=== PATIENT | female | born 1950 | race Caucasian/White ===

== ENCOUNTER 2021-06-23 21:24 | Inpatient (IN) | payer MEDICARE, BC ==
[~2021-06-23] VITALS: Ht 162.6 cm; Wt 87.4 kg
[2021-06-23] MEDS ORDERED: IPRATRPIUM/ALBUTEROL 0.5/2.5MG 3 ML NEBU. NEB ONE (21:45)
[2021-06-23] MEDS ORDERED: methylPREDNISolone SOD SUCC PF 125 MG/2 ML VIAL. IV ONE (21:45)
[2021-06-23 22:08] LABS: BASO # 0.1 x10^3/uL (0.0-0.2); BASO % 1 % (0-3); EOS % 0 % (0-3); HEMATOCRIT 33.5 % (36.0-47.0); HEMOGLOBIN 11.2 g/dL (12.0-15.5); LYMPH # 0.4 x10^3/uL (1.0-4.8); LYMPH % 3 % (24-48); MEAN CORPUSCULAR HEMOGLOBIN 30 pg (25-35); MEAN CORPUSCULAR HGB CONC 33 g/dL (31-37); MEAN CORPUSCULAR VOLUME 90 fL (79-100); MONO # 0.5 x10^3/uL (0.0-1.1); MONO % 3 % (0-9); NEUT # 13.1 x10^3uL (1.8-7.7); NEUT % 93 % (31-73); PLATELET COUNT 286 x10^3/uL (140-400); RED BLOOD COUNT 3.71 x10^6/uL (3.50-5.40); RED CELL DISTRIBUTION WIDTH 18.6 % (11.5-14.5)
--- NOTE | 2021-06-23 22:12 | RAD ---
Exam: Chest one view INDICATION: Short of air, COPD, CHF TECHNIQUE: Frontal view of the chest Comparisons: None FINDINGS: Pacer AICD with leads in the right heart and coronary sinus. Heart is enlarged. Pulmonary vessels are within normal limits. Hazy opacity in lungs bilaterally. No pleural effusion. IMPRESSION: Findings likely related to pulmonary edema. Atypical infectious process is also possible. Electronically signed by: Kierra Ravi MD (06/23/2021 10:10 PM) DON
--- NOTE | 2021-06-23 22:12 | EKG ---
[address] [address] Test Date: 2021-06-23 Test Time: 21:52:22 Pat Name: WALT ENCARNACION Department: Room: Gender: F Tire Installer: : 1950 Requested By: LISBETH BOBO Order Number: [id number] Reading MD: Malachi Barrera Measurements Intervals [place] Rate: 104 P: 124 CT: 70 QRS: -42 QRSD: 100 T: -67 QT: 352 QTc: 469 Interpretive Statements SINUS TACHYCARDIA NON SPECIFIC ST-T WAVE CHANGES Electronically Signed On 06-24-2021 15:38:45 CDT by Malachi Barrera
[2021-06-23 22:23] LABS: ALBUMIN/GLOBULIN RATIO 0.7 (1.0-1.7); CALCIUM 9.2 mg/dL (8.5-10.1); GFR 55.1; TOTAL BILIRUBIN 1.3 mg/dL (0.2-1.0); TOTAL PROTEIN 7.2 g/dL (6.4-8.2)
--- NOTE | 2021-06-23 22:27 | PHYS DOC ---
Past History Past Medical History: Arthritis, CAD, CHF, COPD Additional Past Medical Histor: pacemaker/difibrillator, rheumatoid arthritis Past Surgical History: Other Adult General Chief Complaint Chief Complaint: MULTIPLE COMPLAINTS [facility] HPI Patient is a 70 year old female who presents with shortness of breath and joint pain. Patient has history of COPD, rheumatoid arthritis, congestive heart failure and was at home today. See fell while getting up from the sofa due to joint pain and was not able to get up for couple of hours. 2-hour later she did call ambulance and arrival to ambulance, they found her to have room air saturation of 84%. She was placed on oxygen and transported to the emergency department. Patient states that she did not lose consciousness and she had no injury from the fall. She had gone to a child welfare counselor a week ago and was con firmed to have a rheumatoid arthritis but has not been started on medications. She is supposed to be starting on hydrochloric when but has not done so. She did patient have a significant history of congestive heart failure which as of late actually has been getting slightly better as her medication recently has been switched from Lasix to Bumex. She also has AICD placed approximately a month ago as well. Again, her main complaint today is significantly increased joint pain and shortness of breath with feeling fatigued overall. Denies any fever, cough, diarrhea, vomiting or dysuria. Review of Systems Review of Systems Constitutional: Denies fever or chills Eyes: Denies change in visual acuity, redness, or eye pain HENT: Denies nasal congestion or sore throat Respiratory: Denies cough but has some shortness of breath Cardiovascular: No additional information not addressed in HPI GI: Denies abdominal pain, nausea, vomiting, bloody stools or diarrhea : Denies dysuria or hematuria Musculoskeletal: She has joint pain chronically all over her joints. Integument: Denies rash or skin lesions Neurologic: Denies headache, focal weakness or sensory changes Endocrine: Denies polyuria or polydipsia All other systems were reviewed and found to be within normal limits, except as documented in this note. Current Medications Current Medications Current Medications Medications (Trade) Dose Ordered Sig/Kailash Start Time Stop Time Status Last Admin Dose Admin Albuterol/ Ipratropium (Duoneb) 3 ml 1X ONCE 06/23/21 21:45 06/23/21 21:49 DC 10/14/21 22:01 3 ML Methylprednisolone Sodium Succinate (SOLU-Medrol 125MG VIAL) 125 mg 1X ONCE 06/23/21 21:45 06/23/21 21:49 DC 06/23/21 22:01 125 MG Allergies Allergies Allergies Coded Allergies Type Severity Reaction Last Updated Verified bupropion Allergy Unknown 06/23/21 Yes Physical Exam Physical Exam Constitutional: Well developed, well nourished, no acute distress, non-toxic appearance. HENT: Normocephalic, atraumatic, bilateral external ears normal, oropharynx moist, no oral exudates, nose normal. Eyes: PERRLA, EOMI, conjunctiva normal, no discharge. Neck: Normal range of motion, no tenderness, supple, no stridor. Cardiovascular:Heart rate regular rhythm Lungs & Thorax: Bilateral wheezing with moderate air exchange and occasional crackle. Abdomen: Bowel sounds normal, soft, no tenderness, no masses, no pulsatile masses. Skin: Warm, dry, no erythema, no rash. Back: No tenderness, no CVA tenderness. Extremities: No tenderness, no cyanosis, no clubbing, generalized edema both lower extremities but patient states it is better than her usual baseline. No joint redness noted. Neurologic: Alert and oriented X 3, normal motor function, normal sensory function, no focal deficits noted. Psychologic: Affect normal, judgement normal, mood normal. Current Patient Data Vital Signs Vital Signs Date Time Temp Pulse Resp B/P (MAP) Pulse Ox O2 Delivery O2 Flow Rate FiO2 06/23/21 21:55 91 Room Air 06/23/21 21:26 2.0 06/23/21 21:25 98.1 114 96/57 (70) 06/23/21 21:25 20 Lab Results Laboratory Tests Test 06/23/21 21:52 White Blood Count 14.0 x10^3/uL (4.0-11.0) H Red Blood Count 3.71 x10^6/uL (3.50-5.40) Hemoglobin 11.2 g/dL (12.0-15.5) L Hematocrit 33.5 % (36.0-47.0) L Mean Corpuscular Volume 90 fL (79-100) Mean Corpuscular Hemoglobin 30 pg (25-35) Mean Corpuscular Hemoglobin Concent 33 g/dL (31-37) Red Cell Distribution Width 18.6 % (11.5-14.5) H Platelet Count 286 x10^3/uL (140-400) Neutrophils (%) (Auto) 93 % (31-73) H Lymphocytes (%) (Auto) 3 % (24-48) L Monocytes (%) (Auto) 3 % (0-9) Eosinophils (%) (Auto) 0 % (0-3) Basophils (%) (Auto) 1 % (0-3) Neutrophils # (Auto) 13.1 x10^3uL (1.8-7.7) H Lymphocytes # (Auto) 0.4 x10^3/uL (1.0-4.8) L Monocytes # (Auto) 0.5 x10^3/uL (0.0-1.1) Eosinophils # (Auto) 0.0 x10^3/uL (0.0-0.7) Basophils # (Auto) 0.1 x10^3/uL (0.0-0.2) EKG EKG EKG shows sinus tachycardia at 104 bpm with QRS widening, ventricular hypertr ophy and evidence of previous myocardial infarction. No acute ST segment elevations or depressions noted. Radiology/Procedures Radiology/Procedures Chest x-ray per radiology interpretation shows findings likely related to pulmonary edema but no acute processes seen. [] Heart Score C/O Chest Pain: No Risk Factors: Risk Factors: DM, Current or recent (<one month) smoker, HTN, HLP, family history of CAD, obesity. Risk Scores: Risk Factors: DM, Current or recent (<one month) smoker, HTN, HLP, family history of CAD, obesity. Course & Med Decision Making Course & Med Decision Making Pertinent Labs and Imaging studies reviewed. (See chart for details) Patient had presented with significant hypoxia and brought by ambulance from home. On arrival she was 86% without oxygen and on 2 L nasal cannula she goes up to 94%. For bilateral wheezing she was given DuoNeb with significant improvement in her respiratory status. In addition she received Solu-Medrol 125 mg intravenously which would assist her both with her COPD and rheumatoid flareup. As patient stayed in the emergency department she continued to improve and oxygenation was 95% on room air. She continued to be chest pain-free. Her troponin is slightly bumped up but again patient has no acute chest pain. She otherwise has significant hyponatremia but she is has been on heavy dose of Lasix and is now on Bumex. I spoken with Dr. Villalpando, who will admit patient to telemetry for further monitoring as well as treatment of COPD and rheumatoid arthritis. She is being admitted in hemodynamically stable condition. Dragon Disclaimer Dragon Disclaimer This electronic medical record was generated, in whole or in part, using a voice recognition dictation system. Departure Departure: Impression: Primary Impression: Rheumatoid arthritis flare Additional Impressions: COPD with exacerbation Hyponatremia Pulmonary edema Disposition: ADMITTED INPATIENT Condition: GOOD Problem Qualifiers LISBETH BOBO MD Jun 23, 2021 22:27
[2021-06-24 00:32] VITALS: BP 99/67
[2021-06-24] MEDS ORDERED: IV NORMAL SALINE 1,000ML 1,000 ML IV SCH (00:45)
[2021-06-24 03:03] LABS: BILIRUBIN,URINE NEG (NEG); CLARITY,URINE HAZY; COLOR,URINE YELLOW; GLUCOSE,URINE NEG (NEG); NITRITE,URINE NEG (NEG); RBC,URINE OCC /HPF (0-2); UROBILINOGEN,URINE 0.2 mg/dL (0.2 mg/dL)
[2021-06-24 03:04] LABS: BACTERIA,URINE FEW /HPF (0-FEW); SQUAMOUS EPITHELIAL CELL,UR FEW /LPF
--- NOTE | 2021-06-24 05:54 | NUR ---
Routine PMC cardio consulted at this time.
[2021-06-24 06:15] VITALS: BP 114/77
[2021-06-24 07:21] LABS: CREATININE 0.9 mg/dL (0.6-1.0); GFR 62.3; POTASSIUM 5.2 mmol/L (3.5-5.1)
[2021-06-24] MEDS ORDERED: ALBUTEROL SULFATE 2.5 MG/3 ML NEBU. NEB STA (08:14)
[2021-06-24] MEDS ORDERED: SODIUM CHLORIDE 3 % PREMIX 500 ML IV ONE (08:30)
[2021-06-24] MEDS: SODIUM CHLORIDE 3 % PREMIX 500 ML IV PRN ×2 (08:39→22:44)
[2021-06-24] MEDS: methylPREDNISolone SOD SUCC PF 125 MG/2 ML VIAL. IV SCH ×3 (08:40→21:12)
--- NOTE | 2021-06-24 09:24 | HP ---
ATTENDING PHYSICIAN: Dr. Villalpando. CHIEF COMPLAINT: Shortness of breath. HISTORY OF PRESENT ILLNESS: The patient is a 70-year-old female with multiple medical problems. She had an exacerbation of her rheumatoid arthritis. She had fallen at home, could not get up. She lives alone. She was also found to have decreased oxygen saturation, room air sats were 84%. She continues to smoke a pack of cigarettes a day despite admissions by her physician. She sees a commercial front load driver for coronary artery disease. Recent pacemaker was placed a month ago by Dr. Rodriguez. She also has drank quite a bit of water. Her sodium is diluted, it was down to 160 mEq per liter. She is also on a diuretic. She is admitted then for multiple medical issues. Solu-Medrol was administered. We tried the normal saline throughout the night; however, her sodium level actually went down to 114. Therefore, I suspect she has syndrome of inappropriate antidiuretic hormone secretion. Hypertonic 3% saline has been ordered. PAST MEDICAL HISTORY: Significant for COPD. She is not oxygen dependent. She has a history of permanent pacemaker defibrillator, longstanding rheumatoid arthritis and debilitation. She is disabled. SOCIAL HISTORY: She is a smoker of 1 pack of cigarettes daily. She denies any alcohol use. CURRENT MEDICATIONS: Reviewed. She is sketchy on her meds. She does take an inhaler and nebulizer therapy 4 times a day. In addition, she is on a diuretic. I am unclear as to what her other scheduled meds were in the process of calling her pharmacy to find them. ALLERGIES: She has allergies to BUPROPION. FAMILY HISTORY: Mom of complication of heart disease at age 82. Father of old age at age 90. SURGICAL HISTORY: She has had a hysterectomy for uterine prolapse, permanent pacemaker. REVIEW OF SYSTEMS: Significant for generalized anxiety. She lives alone. She does drink quite a bit of water. All other systems reviewed and determined to be negative. Despite the sodium of 114, she was actually alert and talking and was fairly alert, suggesting this is a chronic issue. PHYSICAL EXAMINATION: GENERAL: When I saw her, this is a pleasant, alert female. VITAL SIGNS: Her initial vital signs showed a blood pressure of 114/77, pulse is 100 and regular. She was afebrile. Oxygen saturation 96% on 2 liters by nasal cannula. HEENT: Head is without trauma. Pupils are reactive. Sclerae nonicteric. The oropharynx is clear. NECK: Supple. No bruits identified. LUNGS: Diffuse wheezing bilaterally. CARDIOVASCULAR: Showed regular heart tones. ABDOMEN: Obese, protuberant. EXTREMITIES: Show trace edema. NEUROLOGIC FINDINGS: Focally intact. SKIN: Warm and dry. PERTINENT LABORATORY STUDIES: Admission sodium was 116 mEq per liter. Hemoglobin 11.2 g/dL, white count 14,000. Potassium is 5.0 mEq, creatinine 1.0 mg/dL, chloride is concomitantly low at 81. Cardiac enzymes initially was 0.08, next one was 0.18 and the third one was 0.21. She had no symptoms. Chest x-ray showed mild pulmonary edema, no acute infiltrates identified. ASSESSMENT: 1. A 70-year-old female with exacerbation of chronic obstructive pulmonary disease. 2. Acute on chronic respiratory failure. 3. Continue tobacco addiction. 4. Longstanding rheumatoid arthritis, symptomatic. 5. Hyponatremia due to syndrome of inappropriate antidiuretic hormone secretion. 6. Generalized anxiety with depression. PLAN: 1. Admit to the inpatient unit with telemetry monitoring. 2. Regarding her cardiac enzymes, I will order a formal consultation with Dr. Rodriguez's group. She is asymptomatic. I suspect this is stress demand ischemia. 3. Solu-Medrol has been ordered for both her lungs and her rheumatoid. 4. We initially tried regular saline, but her sodium level actually went down. We will initiate hypertonic saline at exactly 40 mL an hour, frequent chemistries every 12 hours and a spot urinary sodium. Our goal is to increase her serum sodium level by not more than 10 mEq in a 24-hour period. 5. Serial chemistries. 6. Diet as tolerated. 7. Continue nebulizer therapy. 8. I offered a nicotine patch, she declined. BASIA/JOSE G PINEDA: BASIA/lesa TID: [id number]
[2021-06-24] MEDS ORDERED: GLUC1TAB PO (09:39)
[2021-06-24] MEDS ORDERED: ASPI-630 PO (09:39)
[2021-06-24] MEDS ORDERED: FLUO20CA20 PO (09:39)
[2021-06-24] MEDS ORDERED: GABA100C81 PO (09:39)
[2021-06-24] MEDS ORDERED: UMEC1DIS IH (09:39)
[2021-06-24] MEDS ORDERED: LISI40TA6 PO (09:39)
[2021-06-24] MEDS ORDERED: UBID200C7 PO (09:39)
[2021-06-24] MEDS ORDERED: MULT-245 PO (09:39)
[2021-06-24] MEDS ORDERED: METO-239 PO (09:39)
[2021-06-24] MEDS ORDERED: CALC-337 PO (09:39)
[2021-06-24] MEDS ORDERED: MECO10005 PO (09:39)
[2021-06-24] MEDS ORDERED: METF500T16 PO (09:39)
[2021-06-24] MEDS ORDERED: OM3-1CAP PO (09:39)
[2021-06-24] MEDS ORDERED: BIOT25006 PO (09:39)
[2021-06-24] MEDS ORDERED: BUME1TAB3 PO (09:39)
[2021-06-24] MEDS ORDERED: ATOR20TA58 PO (09:39)
[2021-06-24] MEDS ORDERED: ALBU2.5V8 IH (09:39)
[2021-06-24] MEDS ORDERED: HYDR-2867 PO (09:39)
[2021-06-24] MEDS: metFORMIN 500 MG TABLET PO SCH ×2 (10:21→17:27)
--- NOTE | 2021-06-24 10:38 | NUR ---
Nursing note: Patient's blood sugar level this AM: 198 mg/dl, Dr. Villalpando aware. No order received. Patient already on Metformin.
[2021-06-24 10:41] VITALS: BP 114/76
[2021-06-24] MEDS: UBIDECARENONE 50 MG CAPSULE. PO SCH (11:00)
[2021-06-24] MEDS: ACETAMINOPHEN 500 MG TABLET PO PRN ×2 (11:07→21:11)
[2021-06-24] MEDS: ALBUTEROL SULFATE 2.5 MG/3 ML NEBU. NEB SCH ×4 (12:00→20:14)
--- NOTE | 2021-06-24 12:23 | NUR ---
Nursing note: Pt arrived at 1130 for post exposure rabies vaccination. Patient alert, oriented x4, pleasant. Vital signs taken, Rabies vaccination x 1 dose given per order. Patient tolerated well, no adverse reaction noted. Patient left at 1200 by self. Addendum: 06/24/21 at 1314 by POLY VELAZQUEZ RN RN Note written under wrong patient chart.
[2021-06-24 15:02] VITALS: BP 101/68
[2021-06-24 16:55] LABS: CREATININE 1.2 mg/dL (0.6-1.0); GFR 44.7; POTASSIUM 4.8 mmol/L (3.5-5.1)
[2021-06-24 19:36] VITALS: BP 107/70
[2021-06-24] MEDS: BUDESONIDE 0.5 MG/2 ML NEBU NEB SCH (20:14)
[2021-06-24] MEDS: ATORVASTATIN CALCIUM 20 MG TABLET PO SCH (21:12)
[2021-06-24 23:00] VITALS: BP 113/75
[2021-06-25] MEDS: methylPREDNISolone SOD SUCC PF 125 MG/2 ML VIAL. IV SCH (05:48)
[2021-06-25] MEDS: ALBUTEROL SULFATE 2.5 MG/3 ML NEBU. NEB SCH ×4 (05:56→19:27)
[2021-06-25 05:58] VITALS: BP 108/78
[2021-06-25 07:14] LABS: CALCIUM 8.8 mg/dL (8.5-10.1); CREATININE 1.1 mg/dL (0.6-1.0); GFR 49.4; POTASSIUM 4.4 mmol/L (3.5-5.1)
[2021-06-25] MEDS: METOPROLOL SUCC 24HR ER 25 MG TAB.ER.24H. PO SCH (08:57)
[2021-06-25] MEDS: UBIDECARENONE 50 MG CAPSULE. PO SCH (08:57)
[2021-06-25] MEDS: metFORMIN 500 MG TABLET PO SCH ×2 (08:58→17:16)
[2021-06-25] MEDS: ASPIRIN CHEWABLE 81 MG TABLET. PO SCH (08:58)
[2021-06-25] MEDS: BUDESONIDE 0.5 MG/2 ML NEBU NEB SCH ×2 (08:58→19:27)
[2021-06-25] MEDS ORDERED: NON FORMULARY ITEM (Umeclidinium Brm/Vilanterol Tr (Anoro Ellipta 62.5-25 Mcg Inh) 1 EACH) IH SCH (09:00)
--- NOTE | 2021-06-25 14:17 | PN ---
DATE: 06/25/2021 ATTENDING PHYSICIAN: Dr. Villalpando. SUBJECTIVE: She is breathing better. She has no new complaints. Her arthritis is under better control. OBJECTIVE FINDINGS: VITAL SIGNS: Blood pressure this morning is 108/78, pulse rate is between 90 and 100 and regular. She is afebrile. Oxygen saturation 98% on room air. HEENT: Head is without trauma. Pupils are reactive. Sclerae nonicteric. Oropharynx is clear. NECK: Supple, no bruits. LUNGS: Good breath sounds. CARDIOVASCULAR: Regular heart tones. No gallops. ABDOMEN: Soft. EXTREMITIES: Show trace edema. I examined her backside. There is an old hematoma on her buttocks of a recent fall. PERTINENT LABORATORY STUDIES: Her serum sodium today is up to 126 mEq per liter. Her spot urinary sodium is still pending. Creatinine is 1.1 mg/dL. Sugars are up to 199 due to steroids. Serology negative for coronavirus. ASSESSMENT: 1. A 70-year-old female with exacerbation of chronic obstructive pulmonary disease, improved. 2. Rheumatoid arthritis with exacerbation, improved. 3. Acute on chronic respiratory failure. 4. Continued tobacco addiction. 5. Longstanding rheumatoid arthritis. 6. Hyponatremia due to a combination of diuretics and probable syndrome of inappropriate secretion of antidiuretic hormone. 7. Generalized anxiety with depression. PLAN: 1. We can discontinue her Solu-Medrol as her symptoms have improved. 2. We can discontinue her hypertonic saline. 3. Serial chemistry. 4. Diet as tolerated. 5. Follow up chemistry in the morning. 6. Tentative discharge plan in the morning. BASIA/AMBIKA PINEDA: Evaristo TID: [id number]
[2021-06-25 15:29] VITALS: BP 105/71
[2021-06-25 19:00] VITALS: BP 115/76
[2021-06-25] MEDS: ATORVASTATIN CALCIUM 20 MG TABLET PO SCH (20:36)
[2021-06-25 22:00] VITALS: BP 107/73
[2021-06-26 05:00] VITALS: BP 103/67
[2021-06-26] MEDS: ALBUTEROL SULFATE 2.5 MG/3 ML NEBU. NEB SCH ×2 (05:33→09:22)
[2021-06-26 07:19] LABS: CALCIUM 9.2 mg/dL (8.5-10.1); CREATININE 1.3 mg/dL (0.6-1.0); GFR 40.7; POTASSIUM 5.1 mmol/L (3.5-5.1)
[2021-06-26] MEDS: metFORMIN 500 MG TABLET PO SCH (08:05)
[2021-06-26] MEDS: ASPIRIN CHEWABLE 81 MG TABLET. PO SCH (08:05)
[2021-06-26 08:06] VITALS: BP 103/67
[2021-06-26] MEDS: METOPROLOL SUCC 24HR ER 25 MG TAB.ER.24H. PO SCH (08:06)
[2021-06-26] MEDS: UBIDECARENONE 50 MG CAPSULE. PO SCH (08:06)
[2021-06-26] MEDS: BUDESONIDE 0.5 MG/2 ML NEBU NEB SCH (08:06)
--- NOTE | 2021-06-26 10:32 | DS ---
DATE OF DISCHARGE: 06/26/2021 ATTENDING PHYSICIAN: Dr. Villalpando FINAL DISCHARGE DIAGNOSES: 1. Acute exacerbation of chronic obstructive pulmonary disease, improved. 2. Acute on chronic respiratory failure. 3. Continue tobacco addiction. 4. Longstanding rheumatoid arthritis, symptomatic. 5. Hyponatremia due to diuretics. 6. Generalized anxiety with depression. 7. Elevation of troponins due to stress demand ischemia. 8. Recent permanent pacemaker placement. HISTORY AND PHYSICAL: The patient is a 70-year-old female with multiple pulmonary and cardiac issues. She had an exacerbation of her COPD. She continues to smoke and rheumatoid has been acting up. She also had an admission sodium of 114 mEq per liter. She was admitted to the hospital for further treatment and evaluation. PHYSICAL EXAMINATION: Please see the dictated note. PERTINENT LABORATORY AND X-RAY STUDIES: Admission hemoglobin 11.2 g/dL, white count 14,100. Sodium was 114. With regular saline, it did not improve much; however, hypertonic saline was indicated given the low degree of sodium. We treated her judiciously with close monitoring of her chemistries, it was up to 119, the second day up to 126 and 126 on the second and third day. Her creatinine is stable at 1.3 mg/dL, BUN 36. Nonfasting blood sugar slightly elevated due to steroids. COURSE IN HOSPITAL: The patient was admitted. She was given a burst of intravenous Solu-Medrol with improvement in her lung function and her rheumatoid. Her sodium was initially treated with normal saline, but because of declining sodium, I elected to use hypertonic 3% saline judiciously at 40 mL per hour with a goal of raising her serum sodium level not more than 8 to 10 mEq in a 24-hour period. We were successful getting up to 126 mEq per liter prior to discharge. The 3% saline and Solu-Medrol were discontinued on the third hospital day. She did well. By the fourth day, her lungs were clear, vital signs were stable. She was ready for discharge. At this time, I went over her medications. Strong encouragement for her to quit smoking. Whether or not she will stop smoking remains to be seen, we did have a long discussion. Her discharge meds are basically unchanged. She will continue her albuterol as scheduled, aspirin daily, Lipitor, biotin, bumetanide 1 mg daily. She can skip a dose if her weight is stable or not going up. Fluoxetine 20 mg daily, Neurontin, glucosamine, hydralazine, lisinopril 40 mg daily, B12, metformin, multivitamin, Breo-Ellipta and major advantage of softgel vitamins. She will follow up with her PCP and director of market intelligence as scheduled. She was discharged then from our hospital in stable condition with explicit drug and followup care. Total discharge time is 39 minutes. CYNDIE/IMANI DR: Evaristo TID: [id number]
== END 2021-06-26 12:11 | disposition home or self-care (01) | DRG 545 ==
LOC: ER 21:24 → 1 SOUTH 23:32 → ER 06-24 00:04
PROVIDERS: ADMIT Hospitalist; ATTEND Hospitalist
DX: M06.80 Other specified rheumatoid arthritis, unspecified site (principal); J96.20 Acute and chronic respiratory failure, unspecified whether with hypoxia or hypercapnia; J44.1 Chronic obstructive pulmonary disease with (acute) exacerbation; E22.2 Syndrome of inappropriate secretion of antidiuretic hormone; I24.8 Other forms of acute ischemic heart disease; I25.10 Atherosclerotic heart disease of native coronary artery without angina pectoris; I50.9 Heart failure, unspecified; M19.90 Unspecified osteoarthritis, unspecified site; F17.210 Nicotine dependence, cigarettes, uncomplicated; F41.1 Generalized anxiety disorder; Z20.822 Contact with and (suspected) exposure to COVID-19; F41.8 Other specified anxiety disorders; T50.2X5A Adverse effect of carbonic-anhydrase inhibitors, benzothiadiazides and other diuretics, initial encounter; Z88.8 Allergy status to other drugs, medicaments and biological substances; Z95.0 Presence of cardiac pacemaker; Z90.710 Acquired absence of both cervix and uterus; Y92.89 Other specified places as the place of occurrence of the external cause
CPT/HCPCS: 36415; 71045; 80048; 80053; 81001; 82947; 84300; 84484; 85025; 87086; 87426; 93005; 94640; 96374; J2930; J3490; U0003; 99285-25; J7030; J7613